=== PATIENT | male | born 1995 | race Two or more races ===

== ENCOUNTER 2023-01-29 20:43 | Emergency (ER) | payer OTHER ==
[~2023-01-29] VITALS: Ht 165.1 cm; Wt 75.0 kg
[2023-01-29 21:30] VITALS: BP 119/58; PULSE 88; RESP 17; TEMP 98.3
[2023-01-29 21:42] LABS: COVID AG,FIA SOURCE NASAL SWAB
[2023-01-29 22:02] LABS: INFLUENZA TYPE A NEGATIVE FOR TYPE A (NEGATIVE); INFLUENZA TYPE B NEGATIVE FOR TYPE B (NEGATIVE); SARS-COV2 (COVID) ANTIGEN,FIA Negative (Negative)
== END 2023-01-29 23:13 | disposition home or self-care (01) ==
LOC: EMS 21:01
DX: B34.9 Viral infection, unspecified (principal); Z20.822 Contact with and (suspected) exposure to COVID-19
CPT/HCPCS: 71045; 87804; 99284

== ENCOUNTER 2023-07-09 10:36 | Emergency (ER) | payer MEDICAID, OTHER ==
[~2023-07-09] VITALS: Ht 170.2 cm; Wt 72.7 kg
[2023-07-09 11:01] LABS: COVID AG,FIA SOURCE NASAL SWAB
[2023-07-09 11:35] LABS: RAPID GROUP A STREP NEGATIVE (NEGATIVE)
[2023-07-09 11:42] LABS: SARS-COV2 (COVID) ANTIGEN,FIA Negative (Negative)
[2023-07-09 11:43] LABS: INFLUENZA TYPE A NEGATIVE FOR TYPE A (NEGATIVE); INFLUENZA TYPE B NEGATIVE FOR TYPE B (NEGATIVE)
[2023-07-09 11:57] VITALS: BP 108/44; PULSE 60; RESP 16; TEMP 98.6
[2023-07-09] MEDS ORDERED: MOXI3DRO25 OU (12:03)
[2023-07-09] MEDS ORDERED: AMOX250C4 PO (12:03)
== END 2023-07-09 12:27 | disposition home or self-care (01) ==
LOC: EMS 10:36
DX: J02.0 Streptococcal pharyngitis (principal); H10.89 Other conjunctivitis; Z20.822 Contact with and (suspected) exposure to COVID-19
CPT/HCPCS: 87430; 87804; 99283

== ENCOUNTER 2024-05-23 23:18 | Emergency (ER) | payer MEDICAID ==
[~2024-05-23] VITALS: Ht 167.6 cm; Wt 81.8 kg
[~2024-05-23 23:18] MED LIST: AMOX250C4 PO; MOXI3DRO25 OU
[2024-05-23 23:50] VITALS: BP 116/64; PULSE 69; RESP 16; TEMP 98.2; O2SAT 98
[2024-05-24] MEDS: LIDOCAINE 1% 10 ML VIAL SQ ONE (01:45)
[2024-05-24] MEDS ORDERED: CEPH-558 PO (03:19)
== END 2024-05-24 03:27 | disposition home or self-care (01) ==
LOC: EMS 23:20
DX: S01.111A Laceration without foreign body of right eyelid and periocular area, initial encounter (principal); W22.8XXA Striking against or struck by other objects, initial encounter; Y93.66 Activity, soccer; Y92.322 Soccer field as the place of occurrence of the external cause; Y99.8 Other external cause status
CPT/HCPCS: 99283; 12013; J3490

== ENCOUNTER 2024-12-11 12:04 | Emergency (ER) | payer MEDICAID ==
[~2024-12-11] VITALS: Ht 165.1 cm; Wt 70.5 kg
[~2024-12-11 12:04] MED LIST changes: +CEPH-558 PO
[2024-12-11 12:13] VITALS: BP 111/64; PULSE 92; RESP 18; TEMP 98.8; O2SAT 98
[2024-12-11] MEDS ORDERED: CEPH-558 PO (14:19)
[2024-12-11] MEDS ORDERED: IBUP-1554 PO (14:19)
[2024-12-11] MEDS ORDERED: DOXY-354 PO (14:19)
[2024-12-11] MEDS ORDERED: HYDR-4062 PO (14:19)
[2024-12-11] MEDS: CEPHALEXIN MONOHYDRATE 500 MG CAPSULE PO ONE (14:35)
[2024-12-11] MEDS: HYDROCODONE/ACETAMINOPHEN 5-325 MG TABLET PO ONE (14:36)
[2024-12-11] MEDS: DOXYCYCLINE HYCLATE 100 MG TABLET PO ONE (14:49)
== END 2024-12-11 15:11 | disposition home or self-care (01) ==
LOC: EMS 12:09
DX: S83.92XA Sprain of unspecified site of left knee, initial encounter (principal); L03.311 Cellulitis of abdominal wall; X58.XXXA Exposure to other specified factors, initial encounter; Y93.89 Activity, other specified; Y92.89 Other specified places as the place of occurrence of the external cause; Y99.8 Other external cause status
CPT/HCPCS: 99284; 73562-TC; Z7502; Z7610

== ENCOUNTER 2024-12-18 11:55 | Emergency (ER) | payer MEDICAID ==
[~2024-12-18] VITALS: Ht 165.1 cm; Wt 72.7 kg
[~2024-12-18 11:55] MED LIST changes: -AMOX250C4 PO; +DOXY-354 PO; +HYDR-4062 PO; +IBUP-1554 PO; -MOXI3DRO25 OU
[2024-12-18 12:01] VITALS: BP 103/63; PULSE 84; RESP 16; TEMP 98.4; O2SAT 100
[2024-12-18] MEDS: LIDOCAINE 1%/EPI 1:200,000/PF 10 ML VIAL ID ONE (12:46)
[2024-12-18] MEDS ORDERED: CEPH-558 PO (13:21)
[2024-12-18] MEDS ORDERED: SULF-261 PO (13:21)
== END 2024-12-18 13:52 | disposition home or self-care (01) ==
LOC: EMS 12:01
DX: L02.211 Cutaneous abscess of abdominal wall (principal); Z79.899 Other long term (current) drug therapy
CPT/HCPCS: 99283; 10060; J3490

== ENCOUNTER 2024-12-21 17:32 | Emergency (ER) | payer MEDICAID ==
[~2024-12-21] VITALS: Ht 165.1 cm; Wt 68.2 kg
[~2024-12-21 17:32] MED LIST changes: +SULF-261 PO
[2024-12-21 20:30] VITALS: BP 119/71; PULSE 81; RESP 16; TEMP 97.9; O2SAT 98
== END 2024-12-21 22:07 | disposition home or self-care (01) ==
LOC: EMS 18:23
DX: T14.8XXD Other injury of unspecified body region, subsequent encounter (principal); Z48.01 Encounter for change or removal of surgical wound dressing; Y92.89 Other specified places as the place of occurrence of the external cause
CPT/HCPCS: 99282; Z7502